=== PATIENT | male | born 1970 | race Caucasian/White ===

== ENCOUNTER 2018-12-05 19:14 | Emergency (ER) | payer BC ==
--- NOTE | 2018-12-05 19:20 | UC ---
Skin Complaint HPI - HPI Summary HPI Summary: 48 yo male presents with tick bite. He tells me that his removed a tick from his right side earlier today. Unsure how long it was attached, but says it was small and not engorged. Mild itch at the site. - History of Current Complaint Time Seen by Provider: 12/05/18 19:19 Stated Complaint: TICK BITE Hx Obtained From: Patient Onset/Duration: Sudden Onset Current Severity: None - Allergy/Home Medications Allergies/Adverse Reactions: Allergies Allergy/AdvReac Type Severity Reaction Status Date / Time No Known Allergies Allergy Verified 12/05/18 19:27 PMH/Surg Hx/FS Hx/Imm Hx - Additional Past Medical History Additional PMH: None - Surgical History Surgical History: Yes Surgery Procedure, Year, and Place: Right hand surgery severed tendon repair 2001 - Family History Known Family History: Positive: Hypertension - Social History Occupation: Employed Full-time Lives: With Family Alcohol Use: Occasionally Substance Use Type: None Smoking Status (MU): Never Smoked Tobacco - Immunization History Most Recent Tetanus Shot: UTD Review of Systems All Other Systems Reviewed And Are Negative: Yes Constitutional: Positive: Negative Skin: Positive: Other - Tick bite Respiratory: Positive: Negative Cardiovascular: Positive: Negative Neurovascular: Positive: Negative Neurological: Positive: Negative Psychological: Positive: Negative Physical Exam - Summary Physical Exam Summary: GENERAL: NAD. WDWN. No pain distress. SKIN: RIGHT SIDE: there is a 5mm diameter of faint erythema with central 1mm area of superficial skin loss. No streaking, bleeding, or drainage. NECK: Supple. Nontender. No lymphadenopathy. CHEST: No accessory muscle use. Breathing comfortably and in no distress. CV: Pulses intact. Cap refill <2seconds NEURO: Alert. PSYCH: Age appropriate behavior. Triage Information Reviewed: Yes Vital Signs: Vital Signs: Temp Pulse Resp BP Pulse Ox 98.1 F 79 16 146/95 99 12/05/18 19:23 12/05/18 19:23 12/05/18 19:23 12/05/18 19:23 12/05/18 19:23 Vital Signs Reviewed: Yes Course/Dx - Course Course Of Treatment: Site appears consistent with a tick bite. Based on small tick without engorgement and bite area without significant erythema or ecchymosis - I suspect the tick was not attached >12-24hours. Discussed this with pt, but he prefers to take prophylactic doxycycline at this time. He was given 200mg in the clinic and advised to monitor for signs/symptoms of lyme and f/u if he develops these. - Diagnoses Provider Diagnosis: Tick bite Discharge - Sign-Out/Discharge Documenting (check all that apply): Patient Departure All imaging exams completed and their final reports reviewed: No Studies - Discharge Plan Condition: Stable Disposition: HOME Patient Education Materials: Lyme Disease (ED), Tick Bite (ED) Referrals: Uma Low MD [Primary Care Provider] - Additional Instructions: If you develop a fever, shortness of breath, chest pain, new or worsening symptoms - please call your PCP or go to the ED immediately. Your blood pressure was high at todays visit. Please see your primary provider within 4 weeks for recheck and re-evaluation. - Billing Disposition and Condition Condition: STABLE Disposition: Home
[2018-12-05 19:26] VITALS: BP 146/95
[2018-12-05] MEDS ORDERED: DOXYcycline CAP(*) 100 MG PO ONE (19:32)
== END 2018-12-05 19:40 | disposition home or self-care (01) ==
LOC: UCEAST 19:14
DX: T14.8XXA Other injury of unspecified body region, initial encounter (principal); W57.XXXA Bitten or stung by nonvenomous insect and other nonvenomous arthropods, initial encounter; Y92.9 Unspecified place or not applicable
CPT/HCPCS: 99212; A9270-GY; G0463